=== PATIENT | male | born 1990 | race Caucasian/White ===

== ENCOUNTER 2023-04-17 09:40 | Outpatient (AMB) | payer MEDICAID, SELFPAY ==
--- NOTE | 2023-04-17 09:43 | MHC.OFFVIS ---
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 Withdrawal sx: anxiety Family hx: parents with addiction Review of Systems Const Reports as per HPI Psych Reports anxiety Physical Exam Vital Signs: Last Vital Signs Pulse 68 04/17/23 09:49 BP 110/68 04/17/23 09:49 Pulse Ox 98 04/17/23 09:49 Oxygen Delivery Method Room Air 04/17/23 09:49 Const General: cooperative, healthy appearing and alert Nutritional Appearance: average body habitus and well nourished Orientation/consciousness: patient oriented x3 Limitations: no limitations Resp Effort & Inspection: normal respiratory effort Skin General skin exam: no rashes or lesions noted Neuro General: patient oriented x3 Psych Appearance: grossly normal and well kempt Mental Status: mental status grossly normal Attitude: cooperative Assessment & Plan Assessment & Plan (1) Opioid use disorder: Code(s): F11.90 - Opioid use, unspecified, uncomplicated Plan: Start taking suboxone 8 mg bid. Follow up one week. sublocade ordered Plan Medications: New buprenorphine-naloxone 8-2 mg (Suboxone) 1 film sublingual BID 28 ea 0RF buprenorphine ER (Sublocade) 300 mg (1.5 mL) subcut .every 4 weeks 1.5 mL 1RF Coding Level of Care Code New Pt Level 4 (70624) Diagnoses Opioid use disorder F11.90
[2023-04-17 09:49] VITALS: BP 110/68; PULSE 68; O2SAT 98
== END 2023-04-17 10:35 | disposition home or self-care (01) ==
PROVIDERS: PCP Family Medicine; Visit Provider Nurse Practitioner Psychiatric/Mental Health
DX: F11.90 Opioid use, unspecified, uncomplicated (principal)
CPT/HCPCS: 99204

== ENCOUNTER → 2023-04-17 09:40 | Outpatient (BNVA) | payer OTHER, SELFPAY | PROVIDERS: PCP Family Medicine; Visit Provider Nurse Practitioner Psychiatric/Mental Health | DX: F11.20 Opioid dependence, uncomplicated (principal) | CPT/HCPCS: 99212 ==

== ENCOUNTER 2024-05-11 23:52 | Emergency (ER) | payer OTHER, SELFPAY ==
--- NOTE | ~2024-05-11 | CT_ITS ---
EXAMINATION: CT ABDOMEN AND PELVIS WITHOUT CONTRAST CLINICAL INFORMATION: Right flank pain. COMPARISON: None available. TECHNIQUE: Multidetector volumetric imaging was performed from the superior aspect of the liver through the pubic symphysis. Sagittal and coronal reformatted images were obtained on the technologist's workstation. This CT examination was performed using dose optimization techniques as appropriate, variously including the following: *Automated exposure control *Adjustment of mA and/or kV according to patient size (this includes techniques or standardized protocols for targeted exams where dose is matched to indication/reason for exam; i.e. extremities or head) *Use of iterative reconstruction technique DLP: 756 mGy-cm FINDINGS: Inadequate evaluation of the intra-abdominal organs and vascular structures due to lack of IV contrast. LIVER, GALLBLADDER, AND BILIARY TREE: Liver measures 15 cm. No intrahepatic biliary ductal dilatation. Contracted gallbladder. No pericholecystic fluid collection or gallbladder wall thickening. Common bile duct measures 2 mm. PANCREAS: No peripancreatic fluid collections. No main pancreatic ductal dilatation. SPLEEN: Measures 8 cm. ADRENAL GLANDS: No nodular lesions. KIDNEYS AND URETERS: There is a cluster of 2 mm calculi stacked in the proximal left ureter. There is [id number], dilatation of the left pelvicalyceal system and proximal left ureter. There is no hydronephrosis, in the right kidney/urinary collecting system. There is a 2 mm calculus in the lower pole of the right pelvicalyceal system There is a 2 cm fluid density in the posterior midportion/lower pole junction left kidney. BLADDER: Fluid-filled without intraluminal calculus. GASTROINTESTINAL TRACT: Hiatal hernia, moderate to large size. Abundant stool. No intestinal obstruction pattern. No ascites. No pneumoperitoneum. No pneumatosis intestinalis. Terminal ileum is normal. I cannot clearly identify the appendix, no pericecal edema pattern. ABDOMINAL WALL: Small fat-containing umbilical hernia. LYMPH NODES: No lymphadenopathy, mesenteric or retroperitoneal. VASCULAR: No aneurysm, abdominal aorta. PELVIC VISCERA: Prostate gland is not enlarged. OSSEOUS STRUCTURES: Multilevel thoracolumbar spondylosis with S-shaped curvature. CT/CT abdomen pelvis wo IV con IMPRESSION: Cluster/stacked 2 mm calculi proximal left ureter resulting in mild to moderate left hydroureteronephrosis. Nonobstructing nephrolithiasis, right kidney. 2 cm cyst, left kidney. Hilar hernia, moderate to large size. Small fat-containing umbilical hernia. Multilevel thoracolumbar spondylosis and scoliosis. Fleischner guidelines were followed. Electronically signed by: Fabricio Eubanks MD 05/12/2024 09:03 AM YADI DHILLON
[2024-05-12 00:06] VITALS: BP 113/74; PULSE 69; RESP 16; TEMP 36.9; O2SAT 97; BMI 33.4
[2024-05-12 00:34] LABS: Basophils Percent Auto 0.3 % (0-2); Eosinophils Absolute Auto 0.1 X10*3/uL (0.0-0.4); Eosinophils Percent Auto 0.5 % (0-4); Hematocrit 42.3 % (42.0-52.0); Hemoglobin 14.5 g/dl (14.0-18.0); Imm Gran Abs Auto 0.04 X10*3/uL (0.00-0.03); Imm Gran Pct Auto 0.4 % (0.0-0.4); Lymphocytes Absolute Auto 1.6 X10*3/uL (1.2-4.9); Lymphocytes Percent Auto 16.6 % (20-40); MANUAL DIFF FLAG NO; Mean Corpuscular HGB Conc 34.3 g/dl (31.0-36.0); Mean Corpuscular Hemoglobin 28.7 pg (27.0-33.0); Mean Corpuscular Volume 83.8 fL (80.0-98.0); Mean Platelet Volume 11.5 fL (9.4-12.4); Monocytes Absolute Auto 0.6 X10*3/uL (0.1-1.2); Monocytes Percent Auto 6.2 % (2-11); Neutrophils Absolute Auto 7.4 x10*3/uL (2.0-8.3); Platelet Count 194 X10*3/uL (160-400); Red Blood Count 5.05 X10*6/uL (4.60-5.80); Red Cell Distribution Width 12.5 % (11.0-16.0); White Blood Count 9.7 X10*3/uL (4.8-10.8)
[2024-05-12 00:35] LABS: Appearance Urine Cloudy; Color Urine Yellow; Glucose Urine UA Negative (Negative); Leukocyte Esterase Urine Negative (Negative); Nitrite Urine Negative (Negative); PH 5.5 (5.0-9.0); Specific Gravity - Urine 1.025 (1.005-1.025); UMIC TRIGGER UACC YES; Urine Blood Large (3+) (Negative); Urine Ketones Trace mg/dL (Negative); Urine Protein 30 (1+) mg/dL (Neg-Trace)
[2024-05-12 00:37] LABS: Bacteria Urine None Seen (None Seen); RBC Urine >20 /HPF (0-2); Squamous Epithelial Cell Urine 0-2 /HPF (0-2); WBC Urine 0-5 /HPF (0-5)
[2024-05-12 00:45] LABS: Anion Gap 12 (12-20); Blood Urea Nitrogen 15 mg/dL (9-16); Calcium 9.7 mg/dL (8.4-10.2); Carbon Dioxide 25 mmol/L (22-29); Chloride 107 mmol/L (96-108); Creatinine Clr Calc Pharmacy 112.7; Estimated Glomerular Filt Rate > 60; Glucose Random 120 mg/dL (60-115); Potassium 3.9 mmol/L (3.3-5.1); Sodium 140 mmol/L (135-145)
[2024-05-12 06:18] VITALS: BP 104/47; PULSE 55; RESP 15; TEMP 36.6; O2SAT 99
--- NOTE | 2024-05-12 06:40 | ED.ABDPAIN ---
HPI - Abdominal Pain General Chief Complaint: Abdominal Pain Stated Complaint: sharp side abd pain Time Seen by Provider: 05/12/24 06:28 Source: patient Mode of arrival: ambulatory Limitations: no limitations History of Present Illness ED Provider: AIDEN FOURNIER narrative: 33 yo male with PMH of opiate use disorder here with c/o L flank pain x 2 days that was mild but 1 hour ago was severe and sharp. He tried to take a shower with some relief. The pain has subsided. He denies n/v/d, fevers. He notes his urine is dark as well MD elicited complaint: flank pain Pertinent past history: none Onset (ago): day(s) (2) Pain Consistency: intermittent Location: L flank Severity: severe Quality: stabbing Radiation: none Migration to: no migration Exacerbating factors: nothing Relieving factors: nothing Associated symptoms: hematuria Related Data Previous Rx's ?Medication ?Instructions ?Recorded buprenorphine 300 mg/1.5 mL 300 mg (1.5 mL) subcut .every 4 04/17/23 solution,exten.rel.subcutaneous weeks #1.5 mL syringe (Sublocade) buprenorphine 8 mg-naloxone 2 mg 1 film sublingual BID #28 ea 04/17/23 sublingual film (Suboxone) ketorolac 10 mg tablet 10 mg PO TID PRN pain 5 days #15 05/12/24 tabs ondansetron 4 mg disintegrating 4 mg PO Q8H PRN nausea and 05/12/24 tablet vomiting #20 tabs tamsulosin 0.4 mg capsule 0.4 mg PO DAILY 5 days #5 caps 05/12/24 Allergies Allergy/AdvReac Type Severity Reaction Status Date / Time No Known Allergies Allergy Unverified 05/12/24 00:08 Review of Systems Review of Systems Constitutional : No Weight loss, No Fever, No Chills ENT/Mouth : No sore throat, No Rhinorrhea Eyes: No Swelling, No Redness Cardiovascular : No Chest Pain, No SOB, NoEdema Respiratory : No Cough, No Sputum, No Wheezing Gastrointestinal : no Nausea, no Vomiting, no Diarrhea, positive abdominal Pain, No Hematochezia, No Melena Genitourinary : No Dysuria, No Urinary Frequency, pos Hematuria, No Urgency Musculoskeletal : No joint pain, No Myalgias, No Joint Swelling Skin : No Skin Lesions, No rash Neuro : No Weakness, No Numbness, No Dizziness, No Headache All other systems reviewed and are negative. [facility] Past Medical History Attestation statement: The following information was validated with the patient. Source: old records reviewed Medical History Opioid use disorder Social History Social History (Updated 05/12/24 @ 06:46 by Yuli Rashid DO) Patient Tobacco Use Status: Tobacco use Unknown Advance Directives: No Advance Directives Information Provided: Yes Do you have a plan to hurt others: No Plan Physical Exam ED Vital Signs: Vital Signs - 24 hr 05/12/24 00:06 05/12/24 06:18 05/12/24 06:54 Temperature 98.4 F 98 F 97.7 F Pulse Rate 69 55 57 Respiratory Rate 16 15 15 Blood Pressure 113/74 104/47 L 120/77 Pulse Oximetry 97 99 98 Oxygen Delivery Method Room Air Room Air Room Air 05/12/24 08:53 05/12/24 09:23 Temperature 98 F 98 F Pulse Rate 59 59 Respiratory Rate 15 15 Blood Pressure 100/64 100/64 Pulse Oximetry 100 100 Oxygen Delivery Method Room Air Room Air BMI result Body Mass Index 33.4 Appearance: Alert. Oriented X3. No acute distress. Eyes: Pupils equal, round and reactive to light. ENT: Pharynx normal. Neck: Normal inspection. Neck supple. CVS: Normal heart rate and rhythm. Pulses normal. Respiratory: No respiratory distress. Breath sounds normal. Abdomen: Soft and nontender. Skin: Skin warm and dry. Normal skin color. Normal skin turgor. Extremities: No lower extremity edema. No calf ttp Neuro: Oriented X 3. No motor deficit. No sensory deficit. Medical Decision Making Medical Decision Making [facility] Narrative: 33 yo male with PMH of opiate use disorder here with c/o L flank pain and hematuria no n/v/d fevers. He has overall benign abdominal exam. At this time basic labs, UA, CT scan for renal colic ordered. He is well hydrated. Differential Diagnosis Differential Diagnoses: The differential diagnosis associated with the presentation includes renal colic, flank pain, UTI Admission/Observation Consideration of admission/observation: Escalation of care including admission/observation considered no pain at this time stable for DC Lab Data [facility] Lab Attestation statement: I reviewed the patient's lab results. 05/12/24 00:29 11/07/24 00:29 Labs: Lab Results 05/12/24 Range/Units 00:29 WBC 9.7 (4.8-10.8) X10*3/uL RBC 5.05 (4.60-5.80) X10*6/uL Hgb 14.5 (14.0-18.0) g/dl Hct 42.3 (42.0-52.0) % MCV 83.8 (80.0-98.0) fL MCH 28.7 (27.0-33.0) pg MCHC 34.3 (31.0-36.0) g/dl RDW 12.5 (11.0-16.0) % Plt Count 194 (160-400) X10*3/uL MPV 11.5 (9.4-12.4) fL Immature Gran % (Auto) 0.4 (0.0-0.4) % Neut % (Auto) 76.0 H (45-73) % Lymph % (Auto) 16.6 L (20-40) % [place] % (Auto) 6.2 (2-11) % Eos % (Auto) 0.5 (0-4) % Baso % (Auto) 0.3 (0-2) % Lymph # (Auto) 1.6 (1.2-4.9) X10*3/uL [place] # (Auto) 0.6 (0.1-1.2) X10*3/uL Eos # (Auto) 0.1 (0.0-0.4) X10*3/uL Baso # (Auto) 0.0 (0.0-0.2) X10*3/uL Abs Immat Gran (auto) 0.04 H (0.00-0.03) X10*3/uL Absolute Neuts (auto) 7.4 (2.0-8.3) x10*3/uL Absolute Nucleated RBC 0.000 (0.0-0.012) X10*3/uL Nucleated RBC % (auto) 0.0 (0.0-0.2) /100WBC Sodium 140 (135-145) mmol/L Potassium 3.9 (3.3-5.1) mmol/L Chloride 107 (96-108) mmol/L Carbon Dioxide 25 (22-29) mmol/L Anion Gap 12 (12-20) BUN 15 (9-16) mg/dL Creatinine 1.09 (0.5-1.4) mg/dL Estim Creat Clear Calc 112.7 Estimated GFR > 60 Random Glucose 120 H (60-115) mg/dL Calcium 9.7 (8.4-10.2) mg/dL Urine Color Yellow Urine Appearance Cloudy Urine pH 5.5 (5.0-9.0) Ur Specific [place] 1.025 (1.005-1.025) Urine Protein 30 (1+) H (Neg-Trace) mg/dL Urine Glucose (UA) Negative (Negative) mg/dL Urine Ketones Trace (Negative) mg/dL Urine Blood Large (3+) H (Negative) Urine Nitrite Negative (Negative) Ur Leukocyte Esterase Negative (Negative) Urine RBC >20 H (0-2) /HPF Urine WBC 0-5 (0-5) /HPF Ur Squamous Epith Cells 0-2 (0-2) /HPF Urine Bacteria None Seen (None Seen) Hyaline Casts 3-5 (0-2) /LPF Independent Interpretation I performed an independent interpretation of an: CT Scan (L ureteral stone) Radiology Impression Discussion of test interpretation with radiology: I have reviewed the radiologist's reading. External Record Review External record reviewed: Outpatient record Prescription Management I considered prescription management with: Pain Medication and Other Medications Administered Discontinued Medications Generic Name Dose Route Start Last Admin Trade Name Freq PRN Reason Stop Dose Admin Ketorolac Tromethamine 30 mg 05/12/24 06:39 05/12/24 06:55 Ketorolac Tromethamine 30 Mg/Ml Vial IM 05/12/24 06:40 30 mg ONCE ONE Administration Ondansetron HCl 4 mg 05/12/24 06:39 05/12/24 06:55 Ondansetron Odt 4 Mg Tab.Rapdis TRANSLINGU 05/12/24 06:40 Not Given ONCE ONE Discharge Plan Discharge Clinical Impression: Ureterolithiasis Patient Disposition: Home, Self-Care Instructions: Renal Colic (ED), Ureteral Stones (ED) Additional Instructions: return for fevers, vomiting, unable to eat or drink, unable to urinate stay hydrated drink 60 ounces of fluid a day follow up with Urology if no better by Thursday call to schedulea appointment Prescriptions: New tamsulosin 0.4 mg capsule 0.4 mg PO DAILY 5 Days Qty: 5 0RF ondansetron 4 mg tablet,disintegrating 4 mg PO Q8H PRN (Reason: nausea and vomiting) Qty: 20 0RF ketorolac 10 mg tablet 10 mg PO TID PRN (Reason: pain) 5 Days Qty: 15 0RF Rx Instructions: given IV toradol in department No Action buprenorphine-naloxone [Suboxone] 8-2 mg film 1 film sublingual BID Qty: 28 0RF Sublocade 300 mg/1.5 mL solution, extended rel syringe 300 mg subcut .every 4 weeks Qty: 1.5 1RF Referrals: [facility] Urology Services [Provider Group] Stand Alone Forms: Work/School Release Interventions: ED Discharge Assessment Last Done: 05/12/24 09:23 Print Language: Sami
[2024-05-12 06:54] VITALS: BP 120/77; PULSE 57; RESP 15; TEMP 36.5; O2SAT 98
[2024-05-12] MEDS: Ketorolac Tromethamine 30 MG/ML VIAL IM (06:55)
[2024-05-12 08:53] VITALS: BP 100/64; PULSE 59; RESP 15; TEMP 36.6; O2SAT 100
[2024-05-12 09:23] VITALS: BP 100/64; PULSE 59; RESP 15; TEMP 36.6; O2SAT 100
== END 2024-05-12 09:30 | disposition home or self-care (01) ==
PROVIDERS: Emergency Provider Emergency Medicine; PCP Internal Medicine
DX: N20.1 Calculus of ureter (principal); R10.2 Pelvic and perineal pain; R31.9 Hematuria, unspecified; Z79.899 Other long term (current) drug therapy
CPT/HCPCS: 36415; 74176; 80048; 81001; 85025; 96372; 99284; J1885

== ENCOUNTER → 2024-05-12 05:26 | Outpatient (BNV) | payer OTHER, SELFPAY | PROVIDERS: Emergency Provider Emergency Medicine; PCP Internal Medicine; Visit Provider Radiology Diagnostic Radiology | DX: R10.9 Unspecified abdominal pain (principal) | CPT/HCPCS: 74176 ==